=== PATIENT | female | born 2005 | race African-American/Black ===

== ENCOUNTER 2025-04-08 15:44 | Emergency (ER) | payer MEDICAID ==
[~2025-04-08] VITALS: Ht 121.9 cm; Wt 47.6 kg
[2025-04-08 16:06] VITALS: TEMP 97.2
[2025-04-08 16:30] VITALS: PULSE 123; RESP 20; O2SAT 98
[2025-04-08] MEDS ORDERED: SODIUM CHLORIDE 0.9% 1000ML 1,000 ML IV ONE (16:30)
== END 2025-04-08 17:27 | disposition left against medical advice (07) ==
LOC: ER 16:12
DX: R06.02 Shortness of breath (principal); R00.0 Tachycardia, unspecified; R05.9 Cough, unspecified; R11.10 Vomiting, unspecified; R94.31 Abnormal electrocardiogram [ECG] [EKG]
CPT/HCPCS: 93005; 99283